=== PATIENT | male | born 2000 | race Caucasian/White ===

== ENCOUNTER 2021-10-31 17:59 | Emergency (ER) | payer OTHER ==
[2021-10-31 18:23] VITALS: BP 112/78; PULSE 98; TEMP 100.6; BMI 46.5
[2021-10-31] MEDS ORDERED: KETOROLAC TROMETHAMINE 30 MG/1 ML VIAL ONE (19:43)
[2021-10-31] MEDS ORDERED: KETOROLAC TROMETHAMINE 30 MG/1 ML VIAL IM ONE (19:43)
[2021-10-31 22:09] LABS: INFLU A MOLECULAR Positive (Negative); INFLU B MOLECULAR Negative (Negative)
== END 2021-10-31 19:59 | disposition home or self-care (01) ==
LOC: JER 17:59
PROC: 3E0233Z Introduction of Anti-inflammatory into Muscle, Percutaneous Approach (ICD-10-PCS; principal; 2021-10-31)
DX: R50.9 Fever, unspecified (principal); R51.9 Headache, unspecified; R05.1 Acute cough; R06.9 Unspecified abnormalities of breathing; J09.X2 Influenza due to identified novel influenza A virus with other respiratory manifestations
CPT/HCPCS: 87502; 99284-25; C9803-CS; U0003; U0005